=== PATIENT | female | born 1985 ===

== ENCOUNTER 2017-01-28 09:24 | Inpatient (IN) | payer BC, OTHER ==
[~2017-01-28] VITALS: Ht 160 cm; Wt 72.0 kg
[~2017-01-28 09:24] MED LIST: PRENATAL + DHA1 EAC1 PO
--- NOTE | 2017-01-28 15:08 | PR ---
[facility] [address], [place] [address] Signed Progress Notes IP Datetime Report Generated by CPN: 01/28/2017 15:08 PROGRESS NOTES: [id number] Impression: Non-reassuring heart rate Procedures: Artificial ROM; Scalp Electrode; Sterile Vag Exam; Epidural Placement Plan: Augmentation; Anticipate Vaginal Delivery Informed Consent Obtain: Vaginal Delivery; Risks, Benefits and Alternatives Discussed VITAL SIGNS: [id number] Vital Signs: Reviewed EXAM: [id number] Dilatation: 6.0 Effacement: 90 Station: -2 Uterine Contractions: every 3 minutes MEMBRANES: [id number] Membrane Status: Bulging Amniotic Fluid Color: Meconium, Heavy ROM Note: amniotomy of forebag - dark particulate meconium Comments: patient progressing. Wants epidural Fetus A: [id number] FHR Baseline: 150's Variability: Moderate 6-25bpm Accelerations: 15X15 Decelerations: None FHR Category: Category I Presentation: Vertex Comments on Fetus A: reactive Fetus B: [id number] Signing Physician: Kika Grant MD CC: *Electronically Signed* 01/28/17 1508 KIKA GRANT MD PATIENT NAME: CHRISTIE JARRETT PROGRESS NOTE DATE OF : 85 PHYSICIAN: KIKA GRANT MD RPT #: [id number] REPORT IS CONFIDENTIAL AND NOT TO BE RELEASED WITHOUT AUTHORIZATION
--- NOTE | 2017-01-29 06:49 | PR ---
[facility] [address] [facility] [place] [address] Signed PP Progress Notes Datetime Report Generated by CPN: 01/29/2017 06:49 SUBJECTIVE: [id number] Pain: Within normal limits Nausea/Vomiting: Denies Flatus: Yes Bowel Movement: No Vital Signs: [id number] Vital Signs: Reviewed; Within Normal Limits EXAM: [id number] Cardiovascular: Normal Respiratory: Normal Abdomen/Uterus: Normal Lochia: Normal Vulva/Perineum: Normal Breasts: Normal CVA Tenderness: Normal Extremities: Normal Incision: Not Applicable Progress: Normal IMPRESSION/PLAN/PROCEDURES: [id number] Impression: Normal progression Plan: Discharge Procedures: None Progress Notes: Rubella non immune Rubella non immune, anemia . Pt to get mmr and ok for d/c this pm Signing Physician: Kika Grant MD CC: *Electronically Signed* 01/29/17 0649 KIKA GRANT MD PATIENT NAME: CHRISTIE JARRETT PROGRESS NOTE DATE OF : 85 PHYSICIAN: KIKA GRANT MD RPT #: [id number] REPORT IS CONFIDENTIAL AND NOT TO BE RELEASED WITHOUT AUTHORIZATION
== END 2017-01-29 18:55 | disposition home or self-care (01) | DRG 775 ==
LOC: FBCO 09:24 → FBC 11:15
PROVIDERS: ADMIT Obstetrics & Gynecology
PROC: 10907ZC Drainage of Amniotic Fluid, Therapeutic from Products of Conception, Via Natural or Artificial Opening (ICD-10-PCS; principal; 2017-01-28)
PROC: 10E0XZZ Delivery of Products of Conception, External Approach (ICD-10-PCS; 2017-01-28)
PROC: 0KQM0ZZ Repair Perineum Muscle, Open Approach (ICD-10-PCS; 2017-01-28)
PROC: 00HU33Z Insertion of Infusion Device into Spinal Canal, Percutaneous Approach (ICD-10-PCS; 2017-01-28)
PROC: 3E0R3CZ (ICD-10-PCS; 2017-01-28)
DX: O13.4 Gestational [pregnancy-induced] hypertension without significant proteinuria, complicating childbirth (principal); O99.02 Anemia complicating childbirth; D64.9 Anemia, unspecified; O69.81X0 Labor and delivery complicated by cord around neck, without compression, not applicable or unspecified; O66.0 Obstructed labor due to shoulder dystocia; O70.1 Second degree perineal laceration during delivery; O77.0 Labor and delivery complicated by meconium in amniotic fluid; Z37.0 Single live birth; Z3A.39 39 weeks gestation of pregnancy
CPT/HCPCS: 01960; 36415; 59025; 84112; 85027; 90707; 90715; 99213; J2590